=== PATIENT | female | born 2000 | race Caucasian/White ===

== ENCOUNTER → 2018-04-09 09:41 | Outpatient (CLI) | payer BC, SELFPAY ==
[2018-04-09 12:18] LABS: Absolute Lymphocyte Count 2.42 X10^3/ul (0.83-4.51); Absolute Neutrophil Count 6.1 X10^3/uL (2.0-7.7); Basophil# 0.05 X10^3/uL; Basophil% 0.5 % (0-1); Eosinophil# 0.21 X10^3/uL; Eosinophils% 2.3 % (0-5); Hematocrit 39.3 % (37-47); Hemoglobin 12.6 g/dl (12.0-15.0); Lymphocyte # 2.42 X10^3/ul (4.0); Mean Corp Hgb Conc 32.1 g/gl (32-36); Mean Corpuscular Hgb 27.2 pg (27.0-32.0); Mean Corpuscular Volume 84.9 fL (81-99); Mean Platelet Vol. 10.3 fl (6.2-12.0); Monocyte# 0.49 X10^3/uL; Monocyte% 5.3 % (0-10); Neutrophil # 6.13 X10^3/uL (2.7-7.7); Neutrophil % 65.7 % (47-70); POSITIVE COUNT NO; POSITIVE DIFFERENTIAL NO; POSITIVE MORPHOLOGY NO; Platelet Count 309 K/mm3 (150-450); RBC Distribution Width CV 13.7 % (11.6-14.6); RBC Distribution Width SD 41.9 fl (35.1-43.9); Red Blood Count 4.63 M/mm3 (4.2-5.4); White Blood Count 9.3 K/mm3 (4.4-11.0)
[2018-04-09 12:39] LABS: Vitamin B12 437 pg/mL (211-911)
[2018-04-09 13:06] LABS: Ferritin 5 ng/mL (8-252); Iron 43 ug/dL (50-170); Iron Binding Capacity,Total 500 ug/dL (250-450); T4 Free Direct 0.98 ng/dL (0.76-1.46); Thyroid Stim Hormone (TSH) 1.45 uIU/mL (0.358-3.74)
[2018-04-11 11:57] LABS: Anti-Thyroglobulin AB < 1.0 IU/mL (0.0-0.9); Thyroglobulin, Serum Qt. 14.8 ng/mL (1.5-38.5); Thyroid Peroxidase AB 16 IU/mL (0-26)
== END ==
PROVIDERS: Family Provider Family Medicine; PCP Family Medicine; Visit Provider Family Medicine
DX: Z86.2 Personal history of diseases of the blood and blood-forming organs and certain disorders involving the immune mechanism (principal); Z86.39 Personal history of other endocrine, nutritional and metabolic disease
CPT/HCPCS: 36415; 82607; 82728; 82746; 83540; 83550; 84432; 84439; 84443; 85025; 86376; 86800

== ENCOUNTER 2018-05-26 19:02 | Emergency (ER) | payer BC, SELFPAY ==
[2018-05-26 19:02] VITALS: BP 118/77; PULSE 80; RESP 16; TEMP 36.6; O2SAT 99; BMI 31.6
--- NOTE | 2018-05-26 19:23 | ED.DCSUM_ITS ---
- ER Visit Summary Date of Service: 05/26/18 Chief Complaint: Seizure History of Present Illness: The patient is a [address] Wong. She reports that she has a history of seizures and has been on Topamax 100 mg twice daily for approximately 2 years. Reports that approximately 2 hours ago she had the abrupt onset of occipital pain that is 4 out of 10 severity. She reports that this is similar to the pain she has before having a seizure. She reports I have had worse. States that she feels lightheaded. Mother reports that she has had a small amount of shaking while here which is her typical seizure. She does not have generalized seizures. Patient also reports that she is not able to think straight and that she is zoning out. Review of systems: General: No fever, chills, cold sweats. Cardiovascular: No chest pain, palpitations. Respiratory: No cough, shortness of breath, dyspnea on exertion. Gastrointestinal: No abdominal pain, nausea, vomiting, diarrhea, melena, or hematochezia. Genitourinary: No dysuria, frequency, hematuria. Skin: No rash. Neuro: No numbness, weakness. Physical Examination: Vitals: Stable. Afebrile. General: Well-nourished and well-developed. Head: Normocephalic atraumatic. Neck: Supple, no lymphadenopathy. No JVD. Nontender. Cardiovascular: Regular rate and rhythm. No murmurs. Respiratory: No respiratory distress. Clear to auscultation bilaterally. Abdominal: Soft, nontender, nondistended, normal bowel sounds. No guarding, rebound, or peritoneal signs. Back: Nontender. Extremities: Nontender, no edema. Skin: Normal color, no rash. Neurologic: Alert and oriented ?3. Cranial nerves II through XII are intact. Normal strength and sensation. Psych: Normal affect. Emergency Department Course and Treatment: Patient was treated the dose of Tylenol for her headache and Ativan po. She was observed over the course of 2 hours and feels much improved. Treatment Plan: Patient was discussed with Dr. Gutierres, her neurologist. At this time he does not want to make any changes in her medications. This is the maximum dose of Topamax that she can be on due to the fact that she is on control pills. She is instructed to follow-up in the office as soon as possible. Return to the emergency department for any worsening symptoms. Disposition: To home in improved and stable condition. Impression: 1. Atypical seizures. 2. Cephalgia. This note was generated with [employer] dictation software. It may contain incorrect words, spelling, and punctuation that were not noted in review of the chart prior to signing ED Disposition - Plan for ED Patient: Disposition: Home or Assisted Living Chief Complaint: Seizure Instructions: ED Seizure Recurrent Referrals: Juan Carlos Gutierres MD [STAFF PHYSICIAN] - As soon as possible
[2018-05-26] MEDS: LORazepam 1 MG Tablet PO (20:45)
[2018-05-26] MEDS: Acetaminophen 500 MG Tablet 1000 MG PO (20:45)
[2018-05-26 21:02] VITALS: RESP 18
[2018-05-26 21:47] VITALS: BP 100/61; PULSE 72; RESP 17; O2SAT 100
== END 2018-05-26 21:47 | disposition home or self-care (01) ==
PROVIDERS: Emergency Provider Emergency Medicine; Family Provider Family Medicine; PCP Family Medicine
DX: G40.909 Epilepsy, unspecified, not intractable, without status epilepticus (principal); R51 Headache; F41.9 Anxiety disorder, unspecified; J30.2 Other seasonal allergic rhinitis; E61.1 Iron deficiency; Z79.899 Other long term (current) drug therapy
CPT/HCPCS: 99283

== ENCOUNTER → 2018-07-03 09:47 | Outpatient (CLI) | payer BC, SELFPAY ==
[2018-07-03 11:56] LABS: Absolute Lymphocyte Count 3.01 X10^3/ul (0.83-4.51); Absolute Neutrophil Count 4.7 X10^3/uL (2.0-7.7); Basophil# 0.06 X10^3/uL; Basophil% 0.7 % (0-1); Eosinophil# 0.25 X10^3/uL; Eosinophils% 2.9 % (0-5); Hematocrit 41.2 % (37-47); Hemoglobin 13.1 g/dl (12.0-15.0); Lymphocyte # 3.01 X10^3/ul (4.0); Lymphocyte % 35.5 % (19-41); Mean Corp Hgb Conc 31.8 g/gl (32-36); Mean Corpuscular Hgb 27.2 pg (27.0-32.0); Mean Corpuscular Volume 85.5 fL (81-99); Monocyte# 0.44 X10^3/uL; Monocyte% 5.2 % (0-10); Neutrophil # 4.71 X10^3/uL (2.7-7.7); Neutrophil % 55.6 % (47-70); Platelet Count 318 K/mm3 (150-450); RBC Distribution Width CV 13.6 % (11.6-14.6); RBC Distribution Width SD 42.6 fl (35.1-43.9); Red Blood Count 4.82 M/mm3 (4.2-5.4); White Blood Count 8.5 K/mm3 (4.4-11.0)
[2018-07-03 11:57] LABS: POSITIVE COUNT NO; POSITIVE DIFFERENTIAL NO; POSITIVE MORPHOLOGY NO
[2018-07-03 12:10] LABS: Ferritin 19 ng/mL (8-252); Iron 86 ug/dL (50-170); Iron Binding Capacity,Total 407 ug/dL (250-450)
== END ==
PROVIDERS: Family Provider Family Medicine; PCP Family Medicine; Visit Provider Family Medicine
DX: E61.1 Iron deficiency (principal)
CPT/HCPCS: 36415; 82728; 83540; 83550; 85025

== ENCOUNTER → 2018-08-14 08:42 | Outpatient (CLI) | payer BC, SELFPAY ==
[2018-08-14 10:24] LABS: Basophil# 0.09 X10^3/uL; Eosinophil# 0.18 X10^3/uL; Hematocrit 40.9 % (37-47); Lymphocyte % 35.9 % (19-41); Mean Corp Hgb Conc 31.8 g/gl (32-36); Mean Corpuscular Hgb 27.1 pg (27.0-32.0); Mean Corpuscular Volume 85.2 fL (81-99); Monocyte# 0.61 X10^3/uL; Monocyte% 6.6 % (0-10); Neutrophil % 54.3 % (47-70); POSITIVE COUNT NO; POSITIVE DIFFERENTIAL NO; POSITIVE MORPHOLOGY NO; Platelet Count 336 K/mm3 (150-450); RBC Distribution Width CV 13.7 % (11.6-14.6); RBC Distribution Width SD 42.4 fl (35.1-43.9); White Blood Count 9.2 K/mm3 (4.4-11.0)
[2018-08-14 10:39] LABS: Ferritin 15 ng/mL (8-252); Iron 65 ug/dL (50-170); Iron Binding Capacity,Total 381 ug/dL (250-450)
== END ==
PROVIDERS: Family Provider Family Medicine; PCP Family Medicine; Referring Provider Family Medicine; Visit Provider Family Medicine
DX: E61.1 Iron deficiency (principal)
CPT/HCPCS: 36415; 82728; 83540; 83550; 85025

== ENCOUNTER → 2018-11-28 10:29 | Outpatient (CLI) | payer BC, SELFPAY ==
[2018-11-28 11:29] LABS: Absolute Lymphocyte Count 3.11 X10^3/ul (0.83-4.51); Absolute Neutrophil Count 5.3 X10^3/uL (2.0-7.7); Basophil# 0.04 X10^3/uL; Basophil% 0.4 % (0-1); Eosinophil# 0.16 X10^3/uL; Eosinophils% 1.7 % (0-5); Hematocrit 40.8 % (37-47); Hemoglobin 13.1 g/dl (12.0-15.0); Lymphocyte # 3.11 X10^3/ul (4.0); Lymphocyte % 33.8 % (19-41); Mean Corp Hgb Conc 32.1 g/gl (32-36); Mean Corpuscular Hgb 27.3 pg (27.0-32.0); Mean Platelet Vol. 9.8 fl (6.2-12.0); Monocyte# 0.58 X10^3/uL; Monocyte% 6.3 % (0-10); Neutrophil % 57.7 % (47-70); POSITIVE COUNT NO; POSITIVE DIFFERENTIAL NO; POSITIVE MORPHOLOGY NO; Platelet Count 266 K/mm3 (150-450); RBC Distribution Width CV 13.2 % (11.6-14.6); RBC Distribution Width SD 40.6 fl (35.1-43.9); White Blood Count 9.2 K/mm3 (4.4-11.0)
[2018-11-28 11:57] LABS: Insulin 19.5 mU/L (2.6-37.6)
[2018-11-28 11:58] LABS: Estradiol 143.2 pg/mL; Glucose 91 mg/dL (74-106); Luteinizing Hormone 9.2 mIU/mL; Prolactin 42.7 ng/mL; Thyroid Stim Hormone (TSH) 2.74 uIU/mL (0.358-3.74)
[2018-12-02 09:08] LABS: Testosterone, Free 0.33 ng/dL (0.10-0.85)
[2018-12-02 13:45] LABS: Testosterone, % Free 1.19 % (0.50-2.80); Testosterone, Total 28 ng/dL (.)
== END ==
PROVIDERS: Family Provider Family Medicine; PCP Family Medicine
DX: N91.4 Secondary oligomenorrhea (principal)
CPT/HCPCS: 36415; 82670; 82947; 83001; 83002; 83525; 84146; 84402; 84403; 84443; 85025

== ENCOUNTER 2018-12-11 15:47 | Emergency (ER) | payer BC, SELFPAY ==
[2018-12-11 15:49] VITALS: BP 108/69; PULSE 74; RESP 17; TEMP 36.7; O2SAT 100; BMI 33.4
--- NOTE | 2018-12-11 16:15 | ED.VISSUMM ---
- ER Visit Summary Date of Service: 12/11/18 Chief Complaint: Dizziness History of Present Illness: The patient is a 17 F who had the sudden onset of dizziness while at work today. She was talking when this happened. She felt like her head was spinning and pulling her backwards. She fell down. She did not lose consciousness or injure anything. Symptoms lasted for several seconds and then resolved. She has had these episodes intermittently in the past, but nothing consistent. Nothing seems to bring them on or make them worse. Nothing seems to make them better. She had a recent ear infection. She called her ENT and he did not think that the infection was related to her symptoms. No fevers or tinnitus. Not currently . No change in her medications or routine. No seizure activity. No facial droop, vision changes, weakness, or numbness. Physical Examination: Afebrile and vital signs unremarkable. HEENT exam unremarkable. Head and neck are atraumatic. Cranial nerves grossly intact. Normal strength and sensation grossly. Skin appears normal. Test Results: None indicated Emergency Department Course and Treatment: Patient presents after a vertigo episode. This seems to have resolved. She also fell, but has no injuries. I suspect given the acuity as well as the severity and timing that this is likely a peripheral vertigo. Nothing that sounds like seizure or stroke. We will treat medically at this point. She was given a dose of meclizine and a short prescription. Follow-up with her primary care doctor. Return right away for any new or worsening issues like vision changes, speech changes, weakness, numbness, fevers, change in mental status, or any other concerning findings. Treatment Plan: As above Disposition: Discharge Impression: 1. Vertigo This note was generated with [employer] software. It may contain incorrect words, spelling, and punctuation that were not noted in review of the chart prior to signing ED Disposition - Plan for ED Patient: Referrals: Patrice Emery MD [Primary Care Provider] -
[2018-12-11] MEDS: Meclizine HCl 25 MG Tablet PO (16:22)
--- NOTE | 2018-12-11 16:26 | ED.DCSUM_ITS ---
- ER Visit Summary Date of Service: 12/11/18 Chief Complaint: Dizziness History of Present Illness: The patient is a 17 F who had the sudden onset of dizziness while at work today. She was talking when this happened. She felt like her head was spinning and pulling her backwards. She fell down. She did n ot lose consciousness or injure anything. Symptoms lasted for several seconds and then resolved. She has had these episodes intermittently in the past, but nothing consistent. Nothing seems to bring them on or make them worse. Nothing seems to make them better. She had a recent ear infection. She called her ENT and he did not think that the infection was related to her symptoms. No fevers or tinnitus. Not currently . No change in her medications or routine. No seizure activity. No facial droop, vision changes, weakness, or numbness. Physical Examination: Afebrile and vital signs unremarkable. HEENT exam unremarkable. Head and neck are atraumatic. Cranial nerves grossly intact. Normal strength and sensation grossly. Skin appears normal. Test Results: None indicated Emergency Department Course and Treatment: Patient presents after a vertigo episode. This seems to have resolved. She also fell, but has no injuries. I suspect given the acuity as well as the severity and timing that this is likely a peripheral vertigo. Nothing that sounds like seizure or stroke. We will treat medically at this point. She was given a dose of meclizine and a short prescription. Follow-up with her primary care doctor. Return right away for any new or worsening issues like vision changes, speech changes, weakness, numbness, fevers, change in mental status, or any other concerning findings. Treatment Plan: As above Disposition: Discharge Impression: 1. Vertigo This note was generated with [employer] software. It may contain incorrect words, spelling, and punctuation that were not noted in review of the chart prior to signing ED Disposition - Plan for ED Patient: Referrals: Patrice Emery MD [Primary Care Provider] -
--- NOTE | 2018-12-11 16:26 | ED.DEP ---
ED Disposition - Plan for ED Patient: Instructions: ED Dizziness [facility] Prescriptions: Meclizine HCl 25 mg PO TID PRN PRN #10 tab PRN Reason: Dizziness Referrals: Patrice Emery MD [Primary Care Provider] -
== END 2018-12-11 16:46 | disposition home or self-care (01) ==
PROVIDERS: Emergency Provider Emergency Medicine; Family Provider Family Medicine; PCP Family Medicine
DX: R42 Dizziness and giddiness (principal)
CPT/HCPCS: 99283

== ENCOUNTER → 2018-12-17 09:36 | Outpatient (CLI) | payer BC, SELFPAY ==
[2018-12-11 15:49] VITALS: BMI 33.4
[2018-12-17 11:23] LABS: Prolactin 22.8 ng/mL
== END ==
PROVIDERS: Family Provider Family Medicine; PCP Family Medicine
DX: N91.4 Secondary oligomenorrhea (principal)
CPT/HCPCS: 36415; 84146

== ENCOUNTER → 2019-09-11 09:13 | Outpatient (CLI) | payer BC, SELFPAY ==
[2019-09-11 10:02] LABS: Absolute Lymphocyte Count 2.21 X10^3/uL (0.83-4.51); Basophil# 0.06 X10^3/uL; Basophil% 0.8 % (0-1); Eosinophil# 0.11 X10^3/uL; Eosinophils% 1.4 % (0-5); Hemoglobin 13.6 g/dL (12.0-15.0); Lymphocyte # 2.21 X10^3/ul (4.0); Lymphocyte % 28.1 % (19-41); Mean Corp Hgb Conc 31.6 g/dL (32-36); Mean Corpuscular Hgb 27.6 pg (27.0-32.0); Mean Corpuscular Volume 87.4 fL (81-99); Mean Platelet Vol. 10.1 fl (6.2-12.0); Monocyte# 0.44 X10^3/uL; Monocyte% 5.6 % (0-10); NRBC Flagged by Analyzer 0 % (0-5); Neutrophil # 5.02 X10^3/uL (2.7-7.7); Neutrophil % 63.8 % (47-70); Platelet Count 277 K/mm3 (150-450); RBC Distribution Width SD 41.1 fl (35.1-43.9); Red Blood Count 4.92 M/mm3 (4.2-5.4); White Blood Count 7.9 K/mm3 (4.4-11.0)
[2019-09-11 10:36] LABS: Ferritin 19 ng/mL (8-252); Iron 62 ug/dL (50-170); Iron Binding Capacity,Total 333 ug/dL (250-450)
== END ==
PROVIDERS: Family Provider Family Medicine; PCP Family Medicine; Referring Provider Family Medicine; Visit Provider Family Medicine
DX: E61.1 Iron deficiency (principal)
CPT/HCPCS: 36415; 82728; 83540; 83550; 85025

== ENCOUNTER → 2020-03-23 18:10 | Outpatient (CLI) | payer BC, SELFPAY | PROVIDERS: PCP Family Medicine; Referring Provider Family Medicine; Visit Provider Family Medicine | DX: N39.0 Urinary tract infection, site not specified (principal) | CPT/HCPCS: 87086; 87088 ==

== ENCOUNTER → 2020-03-29 08:24 | Outpatient (CLI) | payer BC, SELFPAY ==
--- NOTE | 2020-03-29 08:29 | US_ITS ---
STUDY: ABDOMINAL ULTRASOUND - RIGHT UPPER QUADRANT REASON FOR VISIT: Female, 19 years old RUQ PAIN TECHNIQUE: Ultrasound evaluation of the right upper quadrant was performed with real-time and static lucas-scale imaging. TECHNICAL QUALITY: Adequate. COMPARISON: None. FINDINGS: Liver: The liver measures 15.1 cm. There is normal echogenicity of the liver. The bile ducts are within normal limits. There is hepatic color flow. The direction of portal flow is hepatopetal. There is no demonstrated mass lesion. Gallbladder: Normal distended gallbladder. The gallbladder wall measures 2.0 mm. There is a negative sonographic Garcia''s sign. There is no pericholecystic fluid. There are no gallstones. Common Bile Duct (C.B.D.): The common bile duct measures 2.7 mm. Pancreas: Normal size of the head, body and tail of the pancreas. There is normal echogenicity of the pancreas. There is no demonstrated pancreatic mass or cyst. Right Kidney: Normal size of the right kidney. The right kidney measures 11.0 x 5.0 x 4.8 cm. Normal renal cortex. The right cortex measures 1.3 cm. There is no demonstrated renal mass or cyst. There is no right hydronephrosis. US/Gallbladder IMPRESSION: Normal right upper quadrant ultrasound examination. Electronically Signed: Navdeep Ibrahim MD at 11:04 EDT , Service support ,
== END ==
PROVIDERS: PCP Family Medicine; Referring Provider Family Medicine; Visit Provider Family Medicine
DX: R10.11 Right upper quadrant pain (principal)
CPT/HCPCS: 76705

== ENCOUNTER → 2020-04-05 12:40 | Outpatient (CLI) | payer BC, SELFPAY ==
--- NOTE | 2020-04-05 12:45 | NM_ITS ---
CLINICAL: 19-year-old female with reported history of postprandial right upper quadrant abdominal pain. RADIONUCLIDE HEPATOBILIARY SCINTIGRAPHY COMPARISON: Abdominal ultrasound report 03/29/2020 FINDINGS: Following the intravenous administration of 5.4 mCi of 99m Tc Mebrofenin, hepatobiliary images reveal: 1. Relatively prompt and homogeneous radiopharmaceutical concentration is noted by a normal sized liver. No parenchymal defects are identified. 2. Gallbladder activity is identified at 15 minutes post radiopharmaceutical administration. 3. Small intestinal tract is not visualized during 60 minutes of pre-CCK sequential imaging. Small bowel activity is identified following the administration of cholecystokinin. 4. Washout of the radiopharmaceutical by the hepatic parenchyma appears qualitatively normal. Cholecystokinin (0.02 ug/kg) was administered intravenously over a 30-minute period. The post CCK gallbladder ejection fraction calculated at 21 minutes following Cholecystokinin administration was noted to be 9.0 % (normal greater than 35%). NM/Hepatobilliary Img w/Pharm Int IMPRESSION: 1. ABNORMAL 99m Tc Mebrofenin hepatobiliary imaging examination with Cholecystokinin. A. A gallbladder ejection fraction calculated to be less than 35% following the administration of Cholecystokinin is consistent with the presence of functional hepatobiliary disease (gallbladder and/or sphincter of Oddi dyskinesia) and/or organic hepatobiliary disease (chronic acalculous cholecystitis and/or cystic duct syndrome) in patients with intermediate to high pretest likelihoods of hepatobiliary illness. (Betty Alvarado et al, Journal of Nuclear Medicine 32:1695, 1991). Electronically Signed: Sylvester Liang DO at 22:59 EDT Tel , Service support ,
== END ==
PROVIDERS: PCP Family Medicine; Referring Provider Family Medicine; Visit Provider Family Medicine
DX: R10.11 Right upper quadrant pain (principal)
CPT/HCPCS: 78227; A9537; J2805

== ENCOUNTER 2020-05-06 09:00 | Day surgery (SDC) | payer BC, SELFPAY ==
[2020-04-14 07:34] VITALS: BMI 31.3
--- NOTE | 2020-04-29 09:55 | EKG12_ITS ---
Test Reason : PRE OP Blood Pressure : / mmHG Vent. Rate : 072 BPM Atrial Rate : 072 BPM P-R Int : 134 ms QRS Dur : 090 ms QT Int : 378 ms P-R-T Axes : 058 045 024 degrees QTc Int : 413 ms Normal sinus rhythm Normal ECG Confirmed by MARTITA CHAO, MALENA ([id number]), editor index REGINALD JENSEN ([id number]) on 05/06/2020 11:08:51 A M Referred By: Rohith Potts Confirmed By:ОЛЬГА ANDERS MD
[2020-04-29 10:38] LABS: Hematocrit 41.7 % (37-47); Mean Corp Hgb Conc 31.2 g/dL (32-36); Mean Corpuscular Hgb 27.6 pg (27.0-32.0); Mean Corpuscular Volume 88.5 fL (81-99); Mean Platelet Vol. 10.5 fl (6.2-12.0); Platelet Count 286 K/mm3 (150-450); RBC Distribution Width CV 12.4 % (11.6-14.6); RBC Distribution Width SD 39.8 fl (35.1-43.9); Red Blood Count 4.71 M/mm3 (4.2-5.4); White Blood Count 12.8 K/mm3 (4.4-11.0)
[2020-04-29 10:44] LABS: Partial Thromboplast Time 32.1 Seconds (24.1-36.2)
[2020-04-29 11:06] LABS: Anion Gap 4 (5-15); BUN 16 mg/dL (7-18); BUN/Creat Ratio 21.7 RATIO (10-20); Calcium,Total 8.7 mg/dL (8.5-10.1); Chloride 108 mmol/L (98-107); Creatinine, Serum 0.74 mg/dL (0.55-1.02); EST Glomerular Filtration Rate 105 mL/min (>60); Est Glom Filt Rate - Afr Amer 127 mL/min (>60); Glucose 87 mg/dL (74-106); Potassium 3.4 mmol/L (3.5-5.1); Sodium Level 139 mmol/L (136-145)
[2020-05-06] VITALS (8 sets, daily range): BP systolic 103–117; BP diastolic 58–87; PULSE 60–94; RESP 16; TEMP 36.2–37.4; O2SAT 94–100; BMI 31.6
--- NOTE | 2020-05-06 | GALL_PTH ---
PATIENT: DONALDO BROOKS LOC: [facility] [place] U#:[id number] AGE/SX: 19/F ROOM: RE05/06/[address]: Dr. Rohith Potts MD : 2000 BED: DIS: 05/06/2020 SPEC #: [id number] RECD: 05/06/20 13:49 STATUS: CASPER LUCERO #: [id number] TANNER: 05/06/20 00:[address]: Rohith Potts DEPT: SURGICAL PATHOLOGY RECD BY: Satnam Chan ENTERED: 05/06/20 13:49 SP TYPE: MARY HOOVER DR: Dr. Patrice Emery MD Tissues: Gallbladder, NOS Procedures: Surgery Specimen Level III HEADER OPERATION: Laparoscopic cholecystectomy PRE-OP DIAGNOSIS: Biliary dyskinesia K82.8 TISSUE SUBMITTED: Gallbladder MICROSCOPIC DIAGNOSIS Gallbladder, cholecystectomy: Chronic cholecystitis. AM:abel 05/09/20 MICROSCOPIC DESCRIPTION Slides are reviewed. GROSS DESCRIPTION Received is one container labeled with the patient's name and designated gallbladder. The specimen consists of a gallbladder measuring 8 x 3 x 3 cm. The external surface is smooth and glistening. Focally, it is granular, hemorrhagic and contains cautery artifact. The lumen of the gallbladder contains yellow-green mucoid bile. No stones are identified in the container or in the gallbladder. The mucosa is bile-stained and without any mass lesions. The gallbladder wall averages 0.2 cm in thickness and is free of mass lesions. [employer] Executive Director sections of the gallbladder and the cystic duct at margin of resection are submitted in one cassette. / AM:abel 05/06/20 TC:3 CPT: 63293
[2020-05-06 09:33] LABS: Internal QC Validated? YES +Cl - CLEAR BKGD; Pregnancy, Urine Negative Negative
[2020-05-06] MEDS: Lactated Ringers 1,000 ML 100 ML IV ×4 (09:46→16:11)
--- NOTE | 2020-05-06 10:21 | PCM.HP.BLA ---
Problem List (1) Biliary dyskinesia Status: Acute History and Physical Date of Admission: 05/06/20 Intake Visit Reasons: BILARY DYSKINESIA, RUQ PAIN [employer] Required: No Is patient in pain?: Yes (abdominal pain) Allergies fexofenadine [From Kari] Allergy (Verified 04/14/20 07:36) Angioedema budesonide [From Symbicort] Adverse Reaction (Verified 04/14/20 07:36) Vomiting formoterol [From Symbicort] Adverse Reaction (Verified 04/14/20 07:36) Vomiting Medications Topiramate [Topamax] 100 mg PO BID 03/06/17 [History Confirmed 04/14/20] Loratadine [Claritin] 10 mg PO DAILY 05/26/18 [History Confirmed 04/14/20] Meclizine HCl 25 mg PO TID PRN PRN #10 tab 12/11/18 [Rx Confirmed 04/14/20] buspirone 7.5 mg tablet 7.5 mg PO BID 04/14/20 [History Confirmed 04/14/20] vitamin#30 30 mg iron-10 mg iron-folic acid 1 mg-omg3 capsule cap PO 04/14/20 [History] [facility] Medical History (Updated 04/14/20 @ 07:[address] Rohith Potts MD) Biliary dyskinesia (Acute) Anemia (Acute) Anxiety and depression (Acute) Seizures (Acute) Surgical History S/P tonsillectomy and adenoidectomy (Acute) Family History Father Diabetes Grandfather Heart disease Grandmother Heart disease Social History (Updated 04/14/20 @ 07:[address] Rohith Potts MD) Smoking Status: Never smoker alcohol intake: never HPI HPI HPI: ODNALDO BROOKS, is a 19 F who presents to the office today for surgical consultation regarding abdominal pain. The patient is referred by Dr Patrice Emery written copy my surgical consult recommendations will return to him. Off and on now for one year she has been having postprandial right-sided pain. She was placed on omeprazole therapy. That assisted with reflux symptoms. Did not improve her pain nor did it improve her nausea. There is no family history of gallbladder disease of which she is aware. Her mother does have IBS. The only previous surgical procedure she has had is a tonsillectomy and adenoidectomy. She has not been . There is been no bright red blood per rectum or melena. She does have occasional constipation. No fever chills or sweats. She was initially told that she might have a UTI when she went to urgent care but after review she states that Dr Patrice Emery did not believe that that was the case. As noted below she had a gallbladder ultrasound this was normal. She had a hepatobiliary scan with an ejection fraction of only 9%. [facility] [address] [place] [address] Hepatobilliary Img w/Pharm Int MR#: [id number]:[id number] Name: DONALDO BROOKS #:[id number] : 2000F 19 From: Sylvester Liang DO PCP:Dr. Patrice Emery MD Status:[facility] CLI Study:Hepatobilliary Img w/Pharm Int Date of Exam:04/05/20 Exam#[id number] Ordering Dr: Patrice Emery MD CLINICAL: 19-year-old female with reported history of postprandial right upper quadrant abdominal pain. RADIONUCLIDE HEPATOBILIARY SCINTIGRAPHY COMPARISON: Abdominal ultrasound report 03/29/2020 FINDINGS: Following the intravenous administration of 5.4 mCi of 99m Tc Mebrofenin, hepatobiliary images reveal: 1. Relatively prompt and homogeneous radiopharmaceutical concentration is noted by a normal sized liver. No parenchymal defects are identified. 2. Gallbladder activity is identified at 15 minutes post radiopharmaceutical administration. 3. Small intestinal tract is not visualized during 60 minutes of pre-CCK sequential imaging. Small bowel activity is identified following the administration of cholecystokinin. 4. Washout of the radiopharmaceutical by the hepatic parenchyma appears qualitatively normal. Cholecystokinin (0.02 ug/kg) was administered intravenously over a 30-minute period. The post CCK gallbladder ejection fraction calculated at 21 minutes following Cholecystokinin administration was noted to be 9.0 % (normal greater than 35%). NM/Hepatobilliary Img w/Pharm Int IMPRESSION: 1. ABNORMAL 99m Tc Mebrofenin hepatobiliary imaging examination with Cholecystokinin. A. A gallbladder ejection fraction calculated to be less than 35% following the administration of Cholecystokinin is consistent with the presence of functional hepatobiliary disease (gallbladder and/or sphincter of Oddi dyskinesia) and/or organic hepatobiliary disease (chronic acalculous cholecystitis and/or cystic duct syndrome) in patients with intermediate to high pretest likelihoods of hepatobiliary illness. (Betty Alvarado et al, Journal of Nuclear Medicine 32:1695, 1991). Electronically Signed: Sylvester Liang DO at 22:59 EDT Tel , Service support , [facility] [address] [place] [id number] Gallbladder MR#: [id number] Name: DONALDO BROOKS #:[id number] : 2000 19 From: Ming Ibrahim MD PCP:Dr. Patrice Emery MD Status:REG CLI Study:Gallbladder Date of Exam:03/29/20 Exam#[id number] Ordering Dr: Patrice Emery MD STUDY: ABDOMINAL ULTRASOUND - RIGHT UPPER QUADRANT REASON FOR VISIT: Female, 19 years old RUQ PAIN TECHNIQUE: Ultrasound evaluation of the right upper quadrant was performed with real-time and static lucas-scale imaging. TECHNICAL QUALITY: Adequate. COMPARISON: None. FINDINGS: Liver: The liver measures 15.1 cm. There is normal echogenicity of the liver. The bile ducts are within normal limits. There is hepatic color flow. The direction of portal flow is hepatopetal. There is no demonstrated mass lesion. Gallbladder: Normal distended gallbladder. The gallbladder wall measures 2.0 mm. There is a negative sonographic Garcia''s sign. There is no pericholecystic fluid. There are no gallstones. Common Bile Duct (C.B.D.): The common bile duct measures 2.7 mm. Pancreas: Normal size of the head, body and tail of the pancreas. There is normal echogenicity of the pancreas. There is no demonstrated pancreatic mass or cyst. Right Kidney: Normal size of the right kidney. The right kidney measures 11.0 x 5.0 x 4.8 cm. Normal renal cortex. The right cortex measures 1.3 cm. There is no demonstrated renal mass or cyst. There is no right hydronephrosis. US/Gallbladder IMPRESSION: Normal right upper quadrant ultrasound examination. Electronically Signed: Navdeep Ibrahim MD at 11:04 EDT , Service support , HPI HPI HPI: DONALDO BROOKS, is a 19 F who presents to the office today for ROS General General: Yes fatigue; no weight change, appetite, colon cancer, breast cancer or weakness HEENT HEENT: No difficulty swallowing, eye injury, eye surgery, swollen glands or hoarseness Endo Endocrine: No thyroid disease, diabetes mellitus, thyroid cancer, Hair loss, heat intolerance or cold intolerance Skin Skin: No rash or changing moles Breast Breast: No left breast lump, right breast lump, nipple discharge, breast pain, abnormal mammogram, abnormal US or breast enlargement Musc Musculoskeletal: No back problems, arthritis, rheumatoid arthritis, gout or joint pain Cardio Cardiovascular: No murmur, pacemaker, heart disease, atrial fibrillation, high blood pressure, heart attack, heart stent, palpitations, shortness of breat with exertion or chest pain Resp Respiratory: No shortness of breath, No sleep apnea, No cough, No COPD, Yes asthma, No emphysema, No wheezing Gastro Gastrointestinal: Yes abdominal pain, No nausea or vomiting, No diarrhea, Yes constipation, No blood in stool, No acid reflux, No hemorrhoids, No ulcers, No gallbladder problem, No black,tarry stools Chavez Hematologic: No blood thinners, No blood disorders, No bleeding, Yes anemia, No blood clots Neuro Neurologic: No system reviewed and no additional complaints, except as docu, No as per HPI, No abnormal walking, No abnormal hearing, No abnormal movements, No abnormal speech, No behavioral changes, No burning sensations, No confusion, No seizure-like activity, No unsteadiness, No dizziness, No localized weakness, No frequent falls, No headache(s), No lack of coordination, No loss of vision, No memory loss, No numbness, No other visual disturbances, No radiating pain, No restless legs, No sensory deficit, No fainting, No tingling, No tremor(s), No weakness, No other Exam Const General: cooperative, healthy appearing, comfortable, no acute distress Nutritional Appearance: obese Orientation: alert, awake Eyes General: appearance normal, both eyes and all related structures Chest Breast Palpation: No nipple discharge Resp Effort & Inspection: normal respiratory effort Auscultation: clear to auscultation bilaterally Cardio Rate: regular rate Rhythm: regular rhythm Heart Sounds: no murmurs GI Palpation: soft, no hepatosplenomegaly Other: Slight tenderness palpation right upper quadrant without mass rebound or guarding. Musc Cervical Spine: normal cervical lordosis Neuro Cognition: normal cognition Extrem General: no calf tenderness Psych Affect: normal affect Assessment & Plan Problems 1. Biliary dyskinesia K82.8 Plan Findings seem to be consistent with biliary dyskinesia. In detail I have described the technique, benefit, risk, alternatives of laparoscopic cholecystectomy with selective cholangiograms. No guarantees of success have been offered. She is additionally aware that I will not have further surgical alternatives if she is not relieved of her discomfort postoperatively. She would then likely fall into a diagnostic category of IBS. She has had an opportunity to ask and have questions answered. We will schedule and proceed at her discretion. She is aware of Covid-19. [facility] continues to report a low local incidence. CC: Dr Patrice Potts M.D., F.A.C.S. I have re-examined the patient. There are no clinical changes since date of exam. Procedure Criteria Procedure Type: Elective COVID Risk Discussion: The surgeon/proceduralist and patient have discussed in detail the risk of exposure to and/or potential harm posed by the COVID-19 virus with having a surgery/procedure at this time versus the risk of delaying the surgery/procedure. It is not possible to know either the risk of delaying the surgery or procedure or chance of getting an infection with perfect accuracy, but a joint decision was made between the patient and the surgeon/proceduralist to proceed at this time with the scheduled surgery/procedure as indicated on the consent form.
--- NOTE | 2020-05-06 10:37 | DCINST_ITS ---
Discharge Diet: Light diet - advance as tolerated - if you have questions about your diet instructions, please talk to you doctor. Discharge Activity: May Not Drive - for 3-5 days or while taking narcotic pain medicine. May shower in (days): 1 Lifting Restrictions: 10 pounds Call your doctor if your incision/area has: Continuous Slow Oozing, Sudden Increased Bleeding, Increased Pain/ Swelling, Increased Redness, Foul Smelling Discharge Call your doctor if you observe: Fever of 101 or Higher Suture Line Care: Avoid Pulling/Pushing, Avoid Pinching/Bending Additional Dressing/Incision Instructions:: Change or remove dressing in 4 days. Leave steri-strips in place for 1 week. Allergies/Adverse Reactions: Allergies fexofenadine [From Kari] Allergy (Verified 05/06/20 09:25) Angioedema budesonide [From Symbicort] Adverse Reaction (Verified 05/06/20 09:25) Vomiting formoterol [From Symbicort] Adverse Reaction (Verified 05/06/20 09:25) Vomiting Medications to take at Discharge Topiramate [Topamax] 100 mg PO BID 03/06/17 Loratadine [Claritin] 10 mg PO DAILY 05/26/18 buspirone 7.5 mg tablet 7.5 mg PO BID 04/14/20 vitamin#30 30 mg iron-10 mg iron-folic acid 1 mg-omg3 capsule 1 cap PO DAILY 04/14/20 Primary Care Physician: Patrice Emery MD [Primary Care Provider] - Test Results: Test results from this visit will be discussed in further detail at your follow- up appointment, if applicable. Please Follow Up With: Rohith Potts MD - [phone] When: Call for appt: may be phone, virtual, or office visit in approx. 10days
[2020-05-06] MEDS: Cefazolin 2 GM in 0.9% Normal Saline 100 ML IV (10:39)
[2020-05-06] MEDS: Bupivacaine Mpf 0.5% 30 ML VIAL (12:08)
--- NOTE | 2020-05-06 12:11 | PCM.OPRPT ---
Problem List (1) Biliary dyskinesia Status: Acute Report of Operation Date of Procedure: 05/06/20 Pre-Operative Diagnosis: Biliary dyskinesia Post-Operative Diagnosis: Same Surgery/Procedure Performed:: Laparoscopic cholecystectomy Description of Surgical Findings:: Timeout and informed consent was obtained. 19-year-old female was taken to the operating room placed supine on the table underwent general endotracheal intubation esthesia. Ancef 2 g were given intravenously preoperatively. The abdomen was sterilely prepped and draped. 0.5% Marcaine was used as a local anesthetic. Throughout the procedure total 30 cc was used. Skin sites were pre-anesthetized. A vertical infraumbilical incision was created. Holding sutures of 0 Vicryl placed. Varies needle inserted. Saline drop test performed. The abdomen was insufflated with CO2 to a pressure of 10 mmHg pressure. Attempts were made to place a 10 mm trocar but this was not successful so I went to the right mid upper quadrant and used a straight 5 mm scope in a Visiport technique to gain access to the abdomen safely. Was then able to inspect the umbilical area saying that the 10 mm trocar with squeezing through the retroperitoneum so I realigned that and got through the peritoneum under direct visitation. An additional 5 mm port was placed in the epigastrium and the right lateral upper quadrant. The abdomen was inspected and there was no evidence of any trocar injury. Gallbladder visibly did not appear to be remarkable. Tedious blunt dissection was instituted at the infundibulum until clearly the cystic duct cystic artery were identified. Hemo-lock clip was placed on the cystic duct and incision made in the cystic cystic duct only to find that the duct was exquisitely small. Despite placing a 14-gauge Angiocath and tried multiple times are not able to advance the cholangiogram catheter into the minuscule cystic duct. This would be consistent with her history of biliary dyskinesia. The cholangiogram was aborted. 2 hemo-lock clips were placed on the cystic duct stump prior to transecting it. The cystic artery was clipped twice proximally to prior to transecting it. The gallbladder was dissected free from the liver bed using electrocautery. Direct structure from the liver bed was secured with a hemo-lock clip. There was no spillage from the gallbladder. Gallbladder was placed in a retrieval bag. The right upper quadrant was irrigated and aspirated free of excess fluid. To further assure hemostasis a piece of fibrillar was placed in the liver bed. The right upper quadrant was irrigated and aspirated free of its fluid. The abdomen was allowed to deflate through the antiviral valve. Trochars were removed. The gallbladder was exited the umbilicus. The fascia at the umbilicus approximated with interrupted 0 Vicryl [id number] suture. Skin edges approximated opted for Monocryl subdermal stitches. Steri-Strips and Telfa and OpSite dressings applied. Sponge and instrument and needle counts were reported to the surgeon to be correct. Blood loss minimal. Specimens gallbladder. Drains none. Blood loss minimal. Rohith Potts M.D., F.A.C.S. Type of Anesthesia:: General Anesthesiologist: Sanjeev Martínez
[2020-05-06] MEDS: HYDROcodone Bitartrate/Apap 5/325 Tablet PO ×2 (15:30→16:10)
--- NOTE | 2020-05-06 16:33 | SUR.PHASEII ---
HAS ATTEMPTED TO VOID TWICE WITHOUT SUCCESS. BLADDER SCANNED FOR 300 CC. #3 IV BAG LR HUNG
== END 2020-05-06 17:59 | disposition home or self-care (01) ==
LOC: SDC 09:01 → AC 09:01
PROVIDERS: Anesthesiology; PCP Family Medicine; Referring Provider Surgery; Visit Provider Surgery
PROC: (CPT 47610; principal; 2020-05-06 10:40)
DX: K81.1 Chronic cholecystitis (principal); Z11.59 Encounter for screening for other viral diseases; Z79.899 Other long term (current) drug therapy; F41.9 Anxiety disorder, unspecified; F32.9 Major depressive disorder, single episode, unspecified; G40.909 Epilepsy, unspecified, not intractable, without status epilepticus; K59.00 Constipation, unspecified
CPT/HCPCS: 00790; 47562; 36415; 80048; 81025; 85027; 85730; 87635; 88304; 93005; 94799; J7120; J2405; U0003

== ENCOUNTER 2020-08-16 02:40 | Emergency (ER) | payer BC, SELFPAY ==
[2020-05-06 09:27] VITALS: BMI 31.6
[2020-08-16 02:40] VITALS: BP 132/77; PULSE 86; RESP 16; TEMP 37.1; O2SAT 97; BMI 31.2
--- NOTE | 2020-08-16 02:52 | ED.VIS.GEN ---
History of Present Illness Chief Complaint: General Illness Informant: Patient Narrative: 19-year-old female with no significant past medical history presents with concern for chills, myalgias, nausea, vomiting, slight cough. States is been present over the past 1 week. States that she was tested for coronavirus 5 days ago which was negative. Patient is at 10 weeks. Denies any abdominal pain or vaginal bleeding. Patient states her was ill over the same period of time but his symptoms have resolved and hers persist. States she is also having slight dizziness. Denies any chest pain or shortness of breath. Past Medical History - Allergies and Home Meds Allergies/Adverse Reactions: Allergies fexofenadine [From Kari] Allergy (Verified 08/16/20 02:44) Angioedema budesonide [From Symbicort] Adverse Reaction (Verified 08/16/20 02:44) Vomiting formoterol [From Symbicort] Adverse Reaction (Verified 08/16/20 02:44) Vomiting Primary Care Physician: Patrice Emery MD [Primary Care Provider] - Prior records reviewed: Yes Past Medical History: None Surgical History: cholecystectomy, tonsillectomy Lives: Spouse/ Significant Other Smoking Status: Never smoker Alcohol: None Drugs: None Review of Systems General: Reports: Chills, Malaise. Denies: Fever, Sweats Eyes: Denies: Visual changes - bilaterally, Diplopia ENT: Denies: Rhinorrhea, Sore throat Cardiovascular: Denies: Chest pain, Palpitations Respiratory: Reports: Cough. Denies: Dyspnea, Dyspnea on exertion Gastrointestinal: Reports: Nausea, Vomiting. Denies: Abdominal pain, Diarrhea, Melena, Hematochezia Genitourinary: Denies: Dysuria, Hematuria, Frequency Musculoskeletal: Denies: Back pain, Extremity Pain Skin: Denies: Rash, Wounds Neurological: Reports: - - dizziness. Denies: Headache, Weakness, Numbness Physical Exam Vital Signs/Narrative: Vital Signs Temp Pulse Resp BP Pulse Ox 08/16/20 02:40 98.7 F 86 16 132/77 H 97 Inital Vital Signs reviewed: Yes General: Well nourished, Well developed, No Acute Distress Head: Normocephalic, Atraumatic Eyes: Perrl, EOMI ENT: Moist mucous membranes, No rhinorrhea Neck: Supple, Nontender Cardiovascular: Regular rate, Regular rhythm, No murmurs Respiratory: No distress, CTA bilaterally, Chest nontender Abdomen: Soft, Nontender, Nondistended, Normal bowel sounds Back: Nontender, Normal Inspection Extremities: Nontender, No edema Skin: Normal color, No rash Neurological: Alert, Oriented x3, Cranial nerves II-XII grossly intact, Normal Strength, Normal Sensation Psychological: Normal affect, Normal Mood Diagnostic/Tx/Re-eval Laboratory Data 08/16/20 08/16/20 08/16/20 03:00 03:00 04:00 WBC 13.8 H RBC 4.99 Hgb 13.9 Hct 43.3 MCV 86.8 MCH 27.9 MCHC 32.1 RDW Std Deviation 39.3 RDW Coeff of Marycarmen 12.5 Plt Count 279 MPV 9.8 Immature Gran % (Auto) 0.400 Neut % (Auto) 79.4 H Lymph % (Auto) 14.3 L [place] % (Auto) 4.8 Eos % (Auto) 0.7 Baso % (Auto) 0.4 Absolute Neuts (auto) 10.9 H Absolute Lymphs (auto) 1.97 Nucleated RBC % 0 Sodium 134 L Potassium 3.9 Chloride 102 Carbon Dioxide 28.0 Anion Gap 4 L BUN 9 Creatinine 0.65 Estim Creat Clear Calc 128.17 Est GFR (MDRD) Af Amer 147 Est GFR (MDRD) Non-Af 122 BUN/Creatinine Ratio 13.9 Glucose 90 Calcium 9.1 Total Bilirubin 0.30 AST 17 ALT 27 Alkaline Phosphatase 61 Total Protein 7.7 Albumin 3.6 Globulin 4.1 Albumin/Globulin Ratio 0.9 Lipase 82 Urine Color Yellow Urine Clarity Clear Urine pH 8.0 Ur Specific [place] 1.015 Urine Protein Negative Urine Glucose (UA) Normal Urine Ketones Negative Urine Occult Blood Negative Urine Nitrite Negative Urine Bilirubin Negative Urine Urobilinogen Normal Ur Leukocyte Esterase Negative Urine RBC 0 SEEN Urine WBC 0 SEEN Ur Squamous Epith Cells 0 SEEN Urine Bacteria 0 SEEN Urine Mucus 0 SEEN - Medical Decision Making Patient appears well and nontoxic. Vital signs within normal limits. No vaginal bleeding or discharge. Urine shows no evidence of infection. Leukocytosis likely secondary to vomiting. Patient was given Zofran as well as fluid bolus. Feeling improved. Advised to follow-up with [facility] and can was given Zofran for home. Coronavirus negative. Discharged home in stable condition. Impression: 1. Nausea and vomiting 2. First trimester ED Disposition - Plan for ED Patient: Disposition: Home or Assisted Living Instructions: Care for a Healthy Baby Prescriptions: Ondansetron [Zofran Odt] 4 mg PO Q8H PRN PRN #10 tab PRN Reason: Nausea Prescription Printed Referrals: Patrice Emery MD [Primary Care Provider] - 1 Day
[2020-08-16] MEDS: 0.9% Normal Saline 1,000 ML 1000 ML IV (03:00)
[2020-08-16] MEDS: Ondansetron 4 MG/2 ML Vial IV (03:01)
[2020-08-16 03:22] LABS: Absolute Lymphocyte Count 1.97 X10^3/uL (0.83-4.51); Absolute Neutrophil Count 10.9 X10^3/uL (2.0-7.7); Basophil# 0.06 X10^3/uL; Basophil% 0.4 % (0-1); Eosinophils% 0.7 % (0-5); Hematocrit 43.3 % (37-47); Hemoglobin 13.9 g/dL (12.0-15.0); Lymphocyte # 1.97 X10^3/ul (4.0); Lymphocyte % 14.3 % (19-41); Mean Corp Hgb Conc 32.1 g/dL (32-36); Mean Corpuscular Hgb 27.9 pg (27.0-32.0); Mean Corpuscular Volume 86.8 fL (81-99); Mean Platelet Vol. 9.8 fl (6.2-12.0); Monocyte# 0.66 X10^3/uL; Monocyte% 4.8 % (0-10); NRBC Flagged by Analyzer 0 % (0-5); Neutrophil # 10.91 X10^3/uL (2.7-7.7); Neutrophil % 79.4 % (47-70); Platelet Count 279 K/mm3 (150-450); RBC Distribution Width CV 12.5 % (11.6-14.6); RBC Distribution Width SD 39.3 fl (35.1-43.9); Red Blood Count 4.99 M/mm3 (4.2-5.4); White Blood Count 13.8 K/mm3 (4.4-11.0)
[2020-08-16 03:24] LABS: ALB/GLOB Ratio 0.9 RATIO (0.9-2.4); AST(SGOT) 17 U/L (15-37); Alanine Aminotransfer ALT/SGPT 27 U/L (13-56); Albumin, Serum 3.6 g/dL (3.2-5.0); Alkaline Phosphatase 61 U/L (45-117); Anion Gap 4 (5-15); BUN 9 mg/dL (7-18); BUN/Creat Ratio 13.9 RATIO (10-20); Calcium,Total 9.1 mg/dL (8.5-10.1); Chloride 102 mmol/L (98-107); Creatinine, Serum 0.65 mg/dL (0.55-1.02); EST Glomerular Filtration Rate 122 mL/min (>60); Est Glom Filt Rate - Afr Amer 147 mL/min (>60); Estimated Creatinine Clearance 128.17 ml/min; Globulin 4.1 g/dL (2.2-4.2); Glucose 90 mg/dL (74-106); Lipase 82 U/L (73-393); Potassium 3.9 mmol/L (3.5-5.1); Protein, Total 7.7 g/dL (6.4-8.2); Sodium Level 134 mmol/L (136-145)
[2020-08-16 04:04] LABS: Bacteria 0 SEEN /hpf (None Seen); Mucous, Urine 0 SEEN /hpf (<or=2+); Red Blood Cells-Urine 0 SEEN /hpf (0-5); Squamous Epithelial Cells - UA 0 SEEN /hpf (5-10); White Blood Cells 0 SEEN /hpf (0-5)
[2020-08-16 04:06] LABS: Color, Urine Yellow (Yellow); Glucose, Dipstick Normal (Normal); Ketone-Dipstick Negative (Negative); Leukocyte Esterase-Dipstick Negative /ul (Negative); Nitrite-Dipstick Negative (Negative); Occult Blood-Urine Negative /ul (Negative); Protein-Dipstick Negative (Negative); Specific Gravity, Urine 1.015 (1.002-1.030); Urine Bilirubin Dipstick Negative (Negative); Urine Clarity Clear (Clear); Urine Urobilinogen Normal (Normal)
[2020-08-16 04:28] VITALS: RESP 16
== END 2020-08-16 04:28 | disposition home or self-care (01) ==
PROVIDERS: Emergency Provider Emergency Medicine; PCP Family Medicine
DX: O21.9 Vomiting of pregnancy, unspecified (principal); Z3A.10 10 weeks gestation of pregnancy
CPT/HCPCS: 80053; 81001; 83690; 85025; 87426; 96374; 99283; J7030; J2405

== ENCOUNTER → 2020-10-17 06:15 | Outpatient (CLI) | payer OTHER, SELFPAY ==
[2020-08-30 10:34] VITALS: BMI 33.0
--- NOTE | 2020-10-17 07:41 | TELEMED_ITS ---
[facility] has confirmed receipt of a request for visit. This document confirms receipt of the order initiating the consult. To find the results of the consultation, please view the patient's reports for the scanned Telemed Consult.
== END ==
PROVIDERS: PCP Family Medicine; Referring Provider Psychiatry & Neurology Neurology; Visit Provider Psychiatry & Neurology Neurology
DX: G40.909 Epilepsy, unspecified, not intractable, without status epilepticus (principal)
CPT/HCPCS: 95819

== ENCOUNTER → 2021-08-28 08:43 | Outpatient (CLI) | payer OTHER, SELFPAY ==
[2021-08-28 10:01] LABS: Hematocrit 42.2 % (37-47); Hemoglobin 13.7 g/dL (12.0-15.0); Mean Corp Hgb Conc 32.5 g/dL (32-36); Mean Corpuscular Hgb 28.3 pg (27.0-32.0); Mean Corpuscular Volume 87.2 fL (81-99); Mean Platelet Vol. 10.1 fl (6.2-12.0); Platelet Count 314 K/mm3 (150-450); RBC Distribution Width CV 12.8 % (11.6-14.6); RBC Distribution Width SD 40.8 fl (35.1-43.9); Red Blood Count 4.84 M/mm3 (4.2-5.4)
[2021-08-28 10:30] LABS: Vitamin B12 544 pg/mL (211-911); Vitamin D,25 Hydroxy 19.7 ng/mL
[2021-08-28 10:42] LABS: AST(SGOT) 13 U/L (15-37); Alanine Aminotransfer ALT/SGPT 22 U/L (13-56); Albumin, Serum 3.9 g/dL (3.2-5.0); Alkaline Phosphatase 95 U/L (45-117); Anion Gap 3 (5-15); BUN 20 mg/dL (7-18); BUN/Creat Ratio 24.4 RATIO (10-20); Calcium,Total 9.5 mg/dL (8.5-10.1); Chloride 105 mmol/L (98-107); Creatinine, Serum 0.82 mg/dL (0.55-1.02); EST Glomerular Filtration Rate 92 mL/min (>60); Est Glom Filt Rate - Afr Amer 112 mL/min (>60); Ferritin 13 ng/mL (8-252); Globulin 3.9 g/dL (2.2-4.2); Glucose 55 mg/dL (74-106); Iron 64 ug/dL (50-170); Iron Binding Capacity,Total 424 ug/dL (250-450); Potassium 4.2 mmol/L (3.5-5.1); Protein, Total 7.8 g/dL (6.4-8.2); Sodium Level 136 mmol/L (136-145); Thyroid Stim Hormone (TSH) 2.93 uIU/mL (0.358-3.74)
== END ==
PROVIDERS: PCP Family Medicine; Referring Provider Nurse Practitioner Family; Visit Provider Nurse Practitioner Family
DX: R53.83 Other fatigue (principal); R42 Dizziness and giddiness; Z86.2 Personal history of diseases of the blood and blood-forming organs and certain disorders involving the immune mechanism
CPT/HCPCS: 36415; 80053; 82306; 82607; 82728; 83540; 83550; 84443; 85027

== ENCOUNTER → 2022-03-20 | Outpatient (CLI) | payer BC, SELFPAY ==
[2022-03-20 10:51] LABS: Vitamin D,25 Hydroxy 54.4 ng/mL
[2022-03-20 10:56] LABS: AST(SGOT) 11 U/L (15-37); Alanine Aminotransfer ALT/SGPT 17 U/L (13-56); Albumin, Serum 3.7 g/dL (3.2-5.0); Alkaline Phosphatase 69 U/L (45-117); Anion Gap 3 (5-15); BUN 14 mg/dL (7-18); BUN/Creat Ratio 19.2 RATIO (10-20); Calcium,Total 9.4 mg/dL (8.5-10.1); Chloride 108 mmol/L (98-107); Creatinine, Serum 0.73 mg/dL (0.55-1.02); EST Glomerular Filtration Rate 105 mL/min (>60); Est Glom Filt Rate - Afr Amer 127 mL/min (>60); Globulin 3.7 g/dL (2.2-4.2); Glucose 80 mg/dL (74-106); Potassium 4.1 mmol/L (3.5-5.1); Protein, Total 7.4 g/dL (6.4-8.2); Sodium Level 139 mmol/L (136-145)
== END | disposition home or self-care (01) ==
LOC: MFPLAB 09:12
PROVIDERS: PCP Family Medicine; Referring Provider Family Medicine; Visit Provider Family Medicine
DX: E55.9 Vitamin D deficiency, unspecified (principal)
CPT/HCPCS: 36415; 80053; 82306

== ENCOUNTER 2022-08-21 16:12 | Outpatient (CLI) | payer BC, SELFPAY ==
[2022-08-21 17:59] LABS: Absolute Lymphocyte Count 3.42 X10^3/uL (0.83-4.51); Absolute Neutrophil Count 6.4 X10^3/uL (2.0-7.7); Basophil# 0.07 X10^3/uL; Basophil% 0.7 % (0-1); Eosinophil# 0.11 X10^3/uL; Eosinophils% 1.1 % (0-5); Hematocrit 41.1 % (37-47); Hemoglobin 12.8 g/dL (12.0-15.0); Lymphocyte # 3.42 X10^3/ul (0.83-4.51); Lymphocyte % 32.7 % (19-41); Mean Corp Hgb Conc 31.1 g/dL (32-36); Mean Corpuscular Hgb 27.5 pg (27.0-32.0); Mean Corpuscular Volume 88.2 fL (81-99); Mean Platelet Vol. 10.2 fl (6.2-12.0); Monocyte# 0.48 X10^3/uL; Monocyte% 4.6 % (0-10); NRBC Flagged by Analyzer 0 % (0-5); Neutrophil # 6.36 X10^3/uL (2.7-7.7); Neutrophil % 60.6 % (47-70); Platelet Count 372 K/mm3 (150-450); RBC Distribution Width CV 12.8 % (11.6-14.6); RBC Distribution Width SD 41.2 fl (35.1-43.9); Red Blood Count 4.66 M/mm3 (4.2-5.4); White Blood Count 10.5 K/mm3 (4.4-11.0)
[2022-08-21 18:32] LABS: AST(SGOT) 13 U/L (15-37); Alanine Aminotransfer ALT/SGPT 23 U/L (13-56); Albumin, Serum 3.6 g/dL (3.2-5.0); Alkaline Phosphatase 61 U/L (45-117); Anion Gap 7 (5-15); BUN 16 mg/dL (7-18); BUN/Creat Ratio 20.2 RATIO (10-20); Calcium,Total 9.2 mg/dL (8.5-10.1); Chloride 102 mmol/L (98-107); Creatinine, Serum 0.79 mg/dL (0.55-1.02); EST Glomerular Filtration Rate 95 mL/min (>60); Est Glom Filt Rate - Afr Amer 115 mL/min (>60); Globulin 3.7 g/dL (2.2-4.2); Glucose 77 mg/dL (74-106); Potassium 4.2 mmol/L (3.5-5.1); Protein, Total 7.3 g/dL (6.4-8.2); Sodium Level 137 mmol/L (136-145); T4 Free Direct 0.95 ng/dL (0.76-1.46); Thyroid Stim Hormone (TSH) 1.46 uIU/mL (0.358-3.74)
[2022-08-21 20:17] LABS: Vitamin B12 429 pg/mL (211-911); Vitamin D,25 Hydroxy 30.6 ng/mL
== END 2022-08-21 23:59 | disposition home or self-care (01) ==
LOC: MFPLAB 16:13
PROVIDERS: PCP Family Medicine; Referring Provider Family Medicine; Visit Provider Family Medicine
DX: R53.83 Other fatigue (principal); R42 Dizziness and giddiness; Z86.2 Personal history of diseases of the blood and blood-forming organs and certain disorders involving the immune mechanism
CPT/HCPCS: 36415; 80053; 82306; 82607; 84439; 84443; 85025

== ENCOUNTER → 2022-12-21 | Outpatient (CLI) | payer OTHER, BC, SELFPAY ==
[2022-12-21 16:12] LABS: Amphetamine Urine VISTA NEGATIVE (<1000 ng/mL); Barbiturate Urine VISTA NEGATIVE (< 200 ng/mL); Benzodiazepine Urine VISTA NEGATIVE (< 200 ng/mL); Cocaine Urine VISTA NEGATIVE (< 300 ng/mL); Ecstacy Urine VISTA NEGATIVE (< 500 ng/mL); Methadone Urine VISTA NEGATIVE (< 300 ng/mL); PCP Urine VISTA NEGATIVE (< 25 ng/mL); THC Urine VISTA NEGATIVE (< 50 ng/mL); Vista UDS pH Range 6
== END | disposition home or self-care (01) ==
LOC: LAB 15:29
PROVIDERS: PCP Family Medicine; Referring Provider Internal Medicine Pulmonary Disease; Visit Provider Internal Medicine Pulmonary Disease
DX: G47.10 Hypersomnia, unspecified (principal)
CPT/HCPCS: 36415; 80307

== ENCOUNTER → 2023-04-08 | Outpatient (CLI) | payer OTHER, BC, SELFPAY | END | disposition home or self-care (01) | PROVIDERS: PCP Family Medicine; Referring Provider Psychiatry & Neurology Neurology; Visit Provider Psychiatry & Neurology Neurology | DX: G47.10 Hypersomnia, unspecified (principal) | CPT/HCPCS: 36415 ==

== ENCOUNTER → 2023-04-10 | Outpatient (CLI) | payer OTHER, BC, SELFPAY | END | disposition home or self-care (01) | PROVIDERS: PCP Family Medicine; Referring Provider Psychiatry & Neurology Neurology; Visit Provider Psychiatry & Neurology Neurology | DX: G47.10 Hypersomnia, unspecified (principal) ==

== ENCOUNTER → 2024-04-09 | Outpatient (CLI) | payer OTHER, SELFPAY ==
[2024-04-09 17:48] LABS: Absolute Lymphocyte Count 2.58 X10^3/uL (0.83-4.51); Absolute Neutrophil Count 8.7 X10^3/uL (2.0-7.7); Basophil# 0.07 X10^3/uL; Basophil% 0.6 % (0-1); Eosinophil# 0.08 X10^3/uL; Eosinophils% 0.7 % (0-5); Hematocrit 40.6 % (37-47); Hemoglobin 12.7 g/dL (12.0-15.0); Lymphocyte # 2.58 X10^3/ul (0.83-4.51); Lymphocyte % 21.5 % (19-41); Mean Corp Hgb Conc 31.3 g/dL (32-36); Mean Corpuscular Hgb 27.3 pg (27.0-32.0); Mean Corpuscular Volume 87.3 fL (81-99); Mean Platelet Vol. 10.3 fl (6.2-12.0); Monocyte% 4.2 % (0-10); NRBC Flagged by Analyzer 0 % (0-5); Neutrophil # 8.68 X10^3/uL (2.7-7.7); Neutrophil % 72.4 % (47-70); Platelet Count 361 K/mm3 (150-450); RBC Distribution Width SD 41.4 fl (35.1-43.9); Red Blood Count 4.65 M/mm3 (4.2-5.4)
[2024-04-09 17:58] LABS: Vitamin D,25 Hydroxy 36.2 ng/mL
[2024-04-09 18:10] LABS: ALB/GLOB Ratio 0.9 RATIO (0.9-2.4); AST(SGOT) 16 U/L (15-37); Alanine Aminotransfer ALT/SGPT 18 U/L (13-56); Albumin, Serum 3.5 g/dL (3.2-5.0); Alkaline Phosphatase 75 U/L (45-117); Anion Gap 6 (5-15); BUN 17 mg/dL (7-18); BUN/Creat Ratio 20.3 RATIO (10-20); Chloride 108 mmol/L (98-107); Cholesterol 171 mg/dL (200); Creatinine, Serum 0.84 mg/dL (0.55-1.02); EST Glomerular Filtration Rate 88 mL/min (>60); Est Glom Filt Rate - Afr Amer 107 mL/min (>60); Ferritin 14 ng/mL (8-252); Glucose 105 mg/dL (74-106); High Density Lipoprotein 47 mg/dL; Iron 64 ug/dL (50-170); Iron Binding Capacity,Total 442 ug/dL (250-450); Potassium 3.9 mmol/L (3.5-5.1); Protein, Total 7.5 g/dL (6.4-8.2); Sodium Level 139 mmol/L (136-145); Thyroid Stim Hormone (TSH) 1.48 uIU/mL (0.358-3.74); Triglycerides 229 mg/dL; Very Low Density Lipoprotein 46 mg/dL (5-40)
== END | disposition home or self-care (01) ==
LOC: MFPLAB 16:07
PROVIDERS: PCP Family Medicine; Visit Provider Family Medicine
DX: E61.1 Iron deficiency (principal); E55.9 Vitamin D deficiency, unspecified; E66.9 Obesity, unspecified
CPT/HCPCS: 36415; 80053; 80061; 82306; 82728; 83540; 83550; 84443; 85025

== ENCOUNTER → 2024-04-22 | Outpatient (CLI) | payer OTHER, SELFPAY ==
[2024-04-22 18:02] LABS: Hemoglobin A1c 5.1 % (3.8-5.6)
== END | disposition home or self-care (01) ==
LOC: MFPLAB 15:15
PROVIDERS: PCP Family Medicine; Visit Provider Family Medicine
DX: R73.09 Other abnormal glucose (principal)
CPT/HCPCS: 36415; 83036

== ENCOUNTER → 2024-05-14 | Outpatient (CLI) | payer OTHER, SELFPAY ==
--- NOTE | 2024-05-14 11:35 | RAD_ITS ---
STUDY: X-RAY - ACUTE ABDOMINAL SERIES REASON FOR EXAM: Female, 23 years old. Pain and diarrhea for 3 months. TECHNIQUE: Single view of the chest. Supine, and erect view(s) of the abdomen were obtained on 4 images. COMPARISON: None. FINDINGS: The lungs are clear and expanded. Normal size heart. Normal mediastinum and indu. Normal visualized pulmonary arteries. Normal visualized aortic arch and descending thoracic aorta. Normal bowel gas pattern with air seen to the distal descending colon. Mild amount of feces in the colon. Normal visualized osseous structures. RAD/Acute Abdomen Inc Chest IMPRESSION: No acute abnormality of the visualized chest, abdomen or pelvis. Electronically Signed: Carl Daugherty MD at 12:06 EDT ,
[2024-05-14 15:31] LABS: Absolute Lymphocyte Count 1.53 X10^3/uL (0.83-4.51); Absolute Neutrophil Count 10.2 X10^3/uL (2.0-7.7); Basophil# 0.06 X10^3/uL; Basophil% 0.5 % (0-1); Eosinophil# 0.01 X10^3/uL; Eosinophils% 0.1 % (0-5); Hematocrit 42.6 % (37-47); Hemoglobin 13.3 g/dL (12.0-15.0); Lymphocyte # 1.53 X10^3/ul (0.83-4.51); Lymphocyte % 12.4 % (19-41); Mean Corp Hgb Conc 31.2 g/dL (32-36); Mean Corpuscular Hgb 27.2 pg (27.0-32.0); Mean Corpuscular Volume 87.1 fL (81-99); Mean Platelet Vol. 10.5 fl (6.2-12.0); Monocyte# 0.48 X10^3/uL; Monocyte% 3.9 % (0-10); NRBC Flagged by Analyzer 0 % (0-5); Neutrophil % 82.8 % (47-70); Platelet Count 353 K/mm3 (150-450); RBC Distribution Width CV 13.3 % (11.6-14.6); RBC Distribution Width SD 42.4 fl (35.1-43.9); Red Blood Count 4.89 M/mm3 (4.2-5.4); White Blood Count 12.3 K/mm3 (4.4-11.0)
[2024-05-14 16:10] LABS: Internal QC Validated? YES +Cl - CLEAR BKGD; Pregnancy, Serum, hCG Quali. NEGATIVE Negative; Record Kit Lot#, Serum Preg. 772476
[2024-05-14 16:18] LABS: AST(SGOT) 12 U/L (15-37); Alanine Aminotransfer ALT/SGPT 18 U/L (13-56); Albumin, Serum 3.9 g/dL (3.2-5.0); Alkaline Phosphatase 69 U/L (45-117); Anion Gap 8 (5-15); BUN 14 mg/dL (7-18); BUN/Creat Ratio 15.6 RATIO (10-20); Calcium,Total 9.8 mg/dL (8.5-10.1); Chloride 105 mmol/L (98-107); EST Glomerular Filtration Rate 81 mL/min (>60); Est Glom Filt Rate - Afr Amer 98 mL/min (>60); Globulin 3.9 g/dL (2.2-4.2); Glucose 105 mg/dL (74-106); Lipase 29 U/L (13-75); Magnesium 2.2 mg/dL (1.6-2.6); Potassium 3.8 mmol/L (3.5-5.1); Protein, Total 7.8 g/dL (6.4-8.2); Sodium Level 137 mmol/L (136-145)
[2024-05-18 13:07] LABS: Deamidated Gliadin IgA 7 units (0-19); Deamidated Gliadin IgG 8 units (0-19); Endomysial Antibody IgA Negative (Negative); Immunoglobulin A 145 mg/dL (87-352); t-Transglutaminase IgA <2 U/mL (0-3)
== END | disposition home or self-care (01) ==
LOC: MTLAB 11:32
PROVIDERS: PCP Family Medicine; Referring Provider Family Medicine; Visit Provider Family Medicine
DX: R10.9 Unspecified abdominal pain (principal); R19.7 Diarrhea, unspecified; N92.6 Irregular menstruation, unspecified
CPT/HCPCS: 36415; 74022; 80053; 82784; 83516; 83690; 83735; 84703; 85025; 86255

== ENCOUNTER → 2024-05-16 | Outpatient (CLI) | payer OTHER, SELFPAY ==
[2024-05-20 07:09] LABS: Pancreatic Elastase, Fecal > 800 (>200)
[2024-05-25 19:07] LABS: Fats, Neutral Normal (.); Fats, Total Normal (.)
== END | disposition home or self-care (01) ==
LOC: LAB 07:12 → LABSPEC 07:15
PROVIDERS: PCP Family Medicine; Referring Provider Family Medicine; Visit Provider Family Medicine
DX: R19.7 Diarrhea, unspecified (principal)
CPT/HCPCS: 82653; 82705; 83630; 87177; 87209; 87493; 87506

== ENCOUNTER → 2024-12-18 | Outpatient (CLI) | payer OTHER, SELFPAY ==
[2024-12-18 18:54] LABS: Hepatitis B Surface Antigen Nonreactive (Nonreactive)
== END | disposition home or self-care (01) ==
LOC: MFPLAB 16:39
PROVIDERS: PCP Family Medicine; Referring Provider Family Medicine; Visit Provider Family Medicine
DX: B19.10 Unspecified viral hepatitis B without hepatic coma (principal)
CPT/HCPCS: 36415; 87340

== ENCOUNTER → 2024-12-30 | Outpatient (CLI) | payer OTHER, SELFPAY ==
[2024-12-30 17:53] LABS: Erythrocyte Sedimentation Rate 18 mm/hr (0-30)
[2024-12-30 18:18] LABS: Absolute Lymphocyte Count 2.31 X10^3/uL (0.83-4.51); Absolute Neutrophil Count 10.9 X10^3/uL (2.0-7.7); Basophil# 0.08 X10^3/uL; Basophil% 0.6 % (0-1); Eosinophil# 0.01 X10^3/uL; Eosinophils% 0.1 % (0-5); Hematocrit 42.1 % (37-47); Hemoglobin 13.5 g/dL (12.0-15.0); Lymphocyte # 2.31 X10^3/ul (0.83-4.51); Lymphocyte % 16.6 % (19-41); Mean Corp Hgb Conc 32.1 g/dL (32-36); Mean Corpuscular Hgb 27.8 pg (27.0-32.0); Mean Corpuscular Volume 86.8 fL (81-99); Mean Platelet Vol. 10.2 fl (6.2-12.0); Monocyte% 4.3 % (0-10); NRBC Flagged by Analyzer 0 % (0-5); Neutrophil # 10.86 X10^3/uL (2.7-7.7); Neutrophil % 78.1 % (47-70); Platelet Count 397 K/mm3 (150-450); RBC Distribution Width CV 12.9 % (11.6-14.6); RBC Distribution Width SD 40.5 fl (35.1-43.9); Red Blood Count 4.85 M/mm3 (4.2-5.4); White Blood Count 13.9 K/mm3 (4.4-11.0)
[2024-12-30 18:30] LABS: ALB/GLOB Ratio 1.4 RATIO (0.9-2.4); AST(SGOT) 21 U/L (<=31); Alanine Aminotransfer ALT/SGPT 11 U/L (<=34); Albumin, Serum 4.4 g/dL (3.5-5.0); Alkaline Phosphatase 74 U/L (35-104); Anion Gap 14 (5-15); BUN 13 mg/dL (4-19); BUN/Creat Ratio 14.1 RATIO (10-20); Calcium,Total 9.8 mg/dL (7.6-11.0); Carbon Dioxide 22.1 mmol/L (21.0-32.0); Chloride 102 mmol/L (98-108); Creatinine, Serum 0.89 mg/dL (0.70-1.20); EST Glomerular Filtration Rate 92 (>60); Globulin 3.2 g/dL (2.2-4.2); Glucose 92 mg/dL (70-99); Potassium 3.9 mmol/L (3.3-5.1); Protein, Total 7.6 g/dL (5.9-8.4); Sodium Level 137 mmol/L (133-145); Total Bilirubin 0.25 mg/dL (0.00-1.30); Vitamin B12 460 pg/mL (180-914); Vitamin D,25 Hydroxy 55.2 ng/mL (30-100)
[2024-12-30 19:36] LABS: Rheumatoid Factor < 10.0 IU/mL (<15)
[2025-01-01 11:08] LABS: ANTINUCLEAR ANTIBODIES DIRECT Negative (Negative)
== END | disposition home or self-care (01) ==
PROVIDERS: PCP Family Medicine; Referring Provider Family Medicine; Visit Provider Family Medicine
DX: M25.50 Pain in unspecified joint (principal); R53.83 Other fatigue; E55.9 Vitamin D deficiency, unspecified
CPT/HCPCS: 36415; 80053; 82306; 82607; 85025; 85652; 86038; 86431; 86617

== ENCOUNTER → 2025-06-30 | Outpatient (CLI) | payer OTHER, SELFPAY ==
[2025-06-30 18:33] LABS: Hematocrit 42.0 % (37-47); Hemoglobin 13.5 g/dL (12.0-15.0); Immature Granulocytes Count 0.040 X10^3/uL (0.0-0.0); Mean Corp Hgb Conc 32.1 g/dL (32-36); Mean Corpuscular Volume 86.2 fL (81-99); Mean Platelet Vol. 9.8 fl (6.2-12.0); NRBC Flagged by Analyzer 0 % (0-5); Platelet Count 402 K/mm3 (150-450); RBC Distribution Width CV 13.3 % (11.6-14.6); RBC Distribution Width SD 41.7 fl (35.1-43.9); Red Blood Count 4.87 M/mm3 (4.2-5.4); White Blood Count 11.6 K/mm3 (4.4-11.0)
[2025-06-30 18:51] LABS: AST(SGOT) 20 U/L (<=31); Alanine Aminotransfer ALT/SGPT 17 U/L (<=34); Albumin, Serum 4.6 g/dL (3.5-5.0); Alkaline Phosphatase 73 U/L (35-104); Anion Gap 11 (5-15); BUN 14 mg/dL (4-19); BUN/Creat Ratio 17.4 RATIO (10-20); Calcium,Total 9.9 mg/dL (7.6-11.0); Carbon Dioxide 26.8 mmol/L (21.0-32.0); Chloride 99 mmol/L (98-108); Globulin 3.0 g/dL (2.2-4.2); Glucose 94 mg/dL (70-99); Potassium 3.7 mmol/L (3.3-5.1); Vitamin D,25 Hydroxy 41.1 ng/mL (30-100)
== END | disposition home or self-care (01) ==
LOC: MFPLAB 16:10
PROVIDERS: PCP Family Medicine; Visit Provider Family Medicine
DX: G47.33 Obstructive sleep apnea (adult) (pediatric) (principal); E55.9 Vitamin D deficiency, unspecified
CPT/HCPCS: 36415; 80053; 82306; 85025